=== PATIENT | male | born 1980 | race Caucasian/White ===

== ENCOUNTER 2018-10-19 12:59 | Outpatient (REF) | payer MEDICAID, SELFPAY ==
[2018-10-19 18:44] LABS: Abs Immature Grans 0.02 k/cumm (0.0-0.09); Absolute Basophil Count 0.05 k/cumm (0.0-0.2); Absolute Eosinophil Count 0.65 k/cumm (0.0-0.7); Absolute Lymphocyte Count 2.44 k/cumm (1.2-3.4); Absolute Monocyte Count 0.67 k/cumm (0.11-0.7); Absolute Neutrophil Count 5.06 k/cumm (1.2-6.7); Basophils % 0.6; Eosinophils % 7.3; HGB 14.9 g/dL (13.5-17.5); Immature Grans % 0.2; Lymphocytes % 27.4; Mean Corp. HGB Concentration 33.9 g/dL (32.0-36.0); Mean Corpuscular Volume 91.5 fL (80-95); Mean Platelet Volume 9.5 fL (8.0-11.0); Monocytes % 7.5; Platelet Count 298 x1000/uL (130-400); RBC 4.81 m/cumm (4.50-6.00); RBC Distribution Width 13.3 % (11.8-14.1); White Blood Cell Count 8.89 k/cumm (4.4-10.8)
[2018-10-19 20:05] LABS: ESR 8 MM/HR (0-15)
== END 2018-10-19 13:19 ==
LOC: NCHCN 12:59
PROVIDERS: PCP Family Medicine; Visit Provider Family Medicine
DX: K51.90 Ulcerative colitis, unspecified, without complications (principal)
CPT/HCPCS: 85652; 85025

== ENCOUNTER 2018-11-04 12:31 | Outpatient (REF) | payer MEDICAID, SELFPAY ==
[2018-11-05 08:19] LABS: HCT 43.4 % (40.0-50.0); HGB 14.5 g/dL (13.5-17.5); Mean Corp. HGB Concentration 33.4 g/dL (32.0-36.0); Mean Corpuscular Volume 92.7 fL (80-95); Mean Platelet Volume 9.8 fL (8.0-11.0); Platelet Count 337 x1000/uL (130-400); RBC 4.68 m/cumm (4.50-6.00); RBC Distribution Width 12.9 % (11.8-14.1); White Blood Cell Count 10.13 k/cumm (4.4-10.8)
== END 2018-11-04 12:51 ==
LOC: NCHCN 12:31
PROVIDERS: PCP Family Medicine; Visit Provider Family Medicine
DX: K51.90 Ulcerative colitis, unspecified, without complications (principal)
CPT/HCPCS: 85027

== ENCOUNTER 2019-03-10 10:47 | Outpatient (REF) | payer MEDICAID, SELFPAY ==
[2019-03-10 13:15] LABS: Abs Immature Grans 0.02 k/cumm (0.0-0.09); Absolute Basophil Count 0.04 k/cumm (0.0-0.2); Absolute Eosinophil Count 0.35 k/cumm (0.0-0.7); Absolute Lymphocyte Count 2.68 k/cumm (1.2-3.4); Absolute Neutrophil Count 6.41 k/cumm (1.2-6.7); Basophils % 0.4; Eosinophils % 3.4; HCT 43.1 % (40.0-50.0); HGB 14.8 g/dL (13.5-17.5); Immature Grans % 0.2; Mean Corp. HGB Concentration 34.3 g/dL (32.0-36.0); Mean Corpuscular Hemoglobin 30.5 pg (27.0-33.0); Mean Corpuscular Volume 88.9 fL (80-95); Mean Platelet Volume 9.2 fL (8.0-11.0); Monocytes % 7.8; Neutrophils % 62.2; Platelet Count 382 x1000/uL (130-400); RBC 4.85 m/cumm (4.50-6.00); RBC Distribution Width 12.8 % (11.8-14.1)
== END 2019-03-10 11:07 ==
LOC: NCHCN 10:47
PROVIDERS: PCP Family Medicine; Visit Provider Family Medicine
DX: K51.90 Ulcerative colitis, unspecified, without complications (principal)
CPT/HCPCS: 85025

== ENCOUNTER 2019-09-08 13:26 | Outpatient (REF) | payer MEDICAID, SELFPAY ==
[2019-09-10 22:29] LABS: Calprotectin 796 mcg/g
== END 2019-09-08 13:46 ==
LOC: LBN 13:26
PROVIDERS: PCP Family Medicine
DX: K51.30 Ulcerative (chronic) rectosigmoiditis without complications (principal)
CPT/HCPCS: 83993

== ENCOUNTER 2019-09-30 02:19 | Outpatient (CLI) | payer MEDICAID, SELFPAY ==
[2019-10-01 09:37] LABS: Hep B Core Antibody Negative (Negative)
[2019-10-01 11:10] LABS: HBs Antibody, Quant 7.7 mIU/mL (See Note); Hepatitis B Surface Ab Negative (See Note)
[2019-10-04 12:54] LABS: TB1 Ag minus Nil 0.45 IU/ml; TB2 Ag minus Nil 0.39 IU/mL
[2019-10-04 15:23] LABS: TB Interpretation Positive (Negative)
== END 2019-09-30 02:39 ==
PROVIDERS: PCP Family Medicine; Visit Provider Internal Medicine
DX: Z11.59 Encounter for screening for other viral diseases (principal); Z11.1 Encounter for screening for respiratory tuberculosis
CPT/HCPCS: 36415; 86704; 86706; 86480

== ENCOUNTER 2019-10-12 07:24 | Outpatient (CLI) | payer MEDICAID, SELFPAY ==
--- NOTE | 2019-10-12 | DI.RAD_ITS ---
EXAM: XR CHEST 2V PA LATERAL CLINICAL HISTORY: LATENT TUBERCULOSIS,Z22.7,POSITIVE SCREENING QUANTIFERON GOLD, SOME COUGH, TECHNIQUE: 2D digital imaging was performed. COMPARISON: CHEST 2 VIEWS PA,LAT from 08/19/2014 FINDINGS: MEDIASTINUM: Normal. HEART: Normal. PULMONARY VASCULATURE: Normal. LUNGS: Clear. PLEURAL SPACE: No pleural effusion or pneumothorax. BONE:Normal. OTHER FINDINGS:mild pectus excavatum IMPRESSION: No acute pulmonary findings. DATA REPOSITORY: RADIATION DOSE DELIVERED:
== END 2019-10-12 07:44 ==
PROVIDERS: PCP Family Medicine; Visit Provider Family Medicine
DX: R05 Cough (principal); Z22.7 Latent tuberculosis
CPT/HCPCS: 71046

== ENCOUNTER 2019-11-08 00:56 | Outpatient (CLI) | payer MEDICAID, SELFPAY ==
[2019-11-11 13:12] LABS: TB Interpretation Negative (Negative); TB1 Ag minus Nil 0.01 IU/ml
== END 2019-11-08 01:16 ==
PROVIDERS: PCP Family Medicine; Visit Provider Nurse Practitioner Gerontology
DX: R76.12 Nonspecific reaction to cell mediated immunity measurement of gamma interferon antigen response without active tuberculosis (principal)
CPT/HCPCS: 36415; 86704; 86706; 86480

== ENCOUNTER 2020-07-20 19:27 | Outpatient (REF) | payer MEDICAID, SELFPAY ==
[2020-07-22 11:37] LABS: COVID-19 RT-PCR UVMMC Result Negative (Negative)
== END 2020-07-20 19:47 ==
LOC: NCHCN 19:27
PROVIDERS: PCP Family Medicine; Visit Provider Nurse Practitioner Family
DX: Z20.822 Contact with and (suspected) exposure to COVID-19 (principal)
CPT/HCPCS: U0003

== ENCOUNTER 2020-09-07 19:21 | Outpatient (REF) | payer MEDICAID, SELFPAY ==
[2020-09-07 18:37] LABS: ALT 26 U/L (16-63); AST 17 U/L (15-37); Albumin 3.9 g/dL (3.4-5.0); Alkaline Phosphatase 44 U/L (46-116); Anion Gap 9.2 mmol/L (3-11); BUN 11 mg/dL (7-18); Bilirubin, Total 0.4 mg/dL (0.2-1.0); C-Reactive Protein 0.12 mg/dL (0.0-0.3); CO2 27.8 mmol/L (21.0-32.0); CREATININE 0.9 mg/dL (0.70-1.30); Calcium 9.4 mg/dL (8.5-10.1); Chloride 104 mmol/L (98-107); Glucose 116 mg/dL (74-106); Magnesium 2.2 mg/dL (1.8-2.4); Potassium 3.9 mmol/L (3.5-5.1); Sodium 141 mmol/L (136-145); TSH (W/Ref FT4) 0.21 uIU/mL (0.36-3.74); Total Protein 7.7 g/dL (6.4-8.2)
[2020-09-07 18:59] LABS: FREE T4 1.25 ng/dL (0.76-1.46)
== END 2020-09-07 19:22 | disposition home or self-care (01) ==
LOC: NCHCN 19:21
PROVIDERS: PCP Family Medicine; Visit Provider Family Medicine
DX: R00.2 Palpitations (principal); K51.90 Ulcerative colitis, unspecified, without complications
CPT/HCPCS: 80053; 83735; 84439; 84443; 85025; 86140

== ENCOUNTER 2020-09-08 14:45 | Outpatient (CLI) | payer MEDICAID, SELFPAY ==
--- NOTE | 2020-10-20 10:55 | W.CARDEVENT ---
Date of service: 10/20/20 Time of Service: 10:55 Cardiac Event Recorder Referring Provider:: Michele Indications:: Palpitations Cardiac Event Note: This is a 30-day event recorder order for indication of palpitations. ?The patient was in normal sinus rhythm for the majority of the recording with an average heart rate of 90 bpm. ?There were no critical or serious events. ?There were 17 patient triggered events associated with sinus rhythm, sinus tachycardia and occasional PVC. ?There are no episodes of atrial fibrillation, no pauses greater than 3 seconds and no evidence of high degree heart block.
== END 2020-09-08 14:46 | disposition home or self-care (01) ==
LOC: RT 14:47
PROVIDERS: PCP Family Medicine; Visit Provider Family Medicine
DX: R00.2 Palpitations (principal); R42 Dizziness and giddiness; R06.02 Shortness of breath
CPT/HCPCS: 93270

== ENCOUNTER 2020-09-08 18:48 | Outpatient (REF) | payer MEDICAID, SELFPAY ==
[2020-09-08 19:01] LABS: Abs Immature Grans 0.04 10^3/uL (0.0-0.06); Absolute Eosinophil Count 0.23 10^3/uL (0.0-0.7); Absolute Monocyte Count 0.69 10^3/uL (0.1-0.8); Absolute Neutrophil Count 9.27 10^3/uL (1.2-6.7); Basophils % 0.6; Eosinophils % 1.8; HCT 42.1 % (40.0-50.0); HGB 14.3 g/dL (13.5-17.5); Immature Grans % 0.3; Lymphocytes % 18.4; MCH 30.5 pg (27.0-33.0); MCV 89.8 fL (80-95); MPV 9.3 fL (8.0-11.0); Monocytes % 5.5; Neutrophils % 73.4; Nucleated RBC 0 %; Platelet Count 399 10^3/uL (130-400); RBC 4.69 10^6/uL (4.36-5.78); RDW 12.4 % (11.8-14.1); RDW-SD 40.9 fL; WBC 12.63 10^3/uL (4.4-10.8)
[2020-09-08 19:04] LABS: Absolute Basophil Count 0.08 10^3/uL (0.0-0.2); Absolute Lymphocyte Count 2.32 10^3/uL (1.2-3.4)
== END 2020-09-08 18:49 | disposition home or self-care (01) ==
LOC: NCHCN 18:48
PROVIDERS: PCP Family Medicine; Visit Provider Family Medicine
DX: K51.90 Ulcerative colitis, unspecified, without complications (principal); R00.2 Palpitations
CPT/HCPCS: 85025

== ENCOUNTER 2020-09-25 10:07 | Outpatient (CLI) | payer MEDICAID, SELFPAY ==
[2020-09-26 13:48] LABS: COVID-19 RT-PCR UVMMC Result Negative (Negative)
== END 2020-09-25 10:08 | disposition home or self-care (01) ==
PROVIDERS: PCP Family Medicine; Visit Provider Family Medicine
DX: Z20.822 Contact with and (suspected) exposure to COVID-19 (principal); R05 Cough
CPT/HCPCS: U0003

== ENCOUNTER → 2021-11-19 17:18 | Outpatient (CLI) | payer MEDICAID, SELFPAY ==
--- NOTE | 2021-11-19 17:32 | DI.RAD_ITS ---
Exam(s) XR CHEST 2V PA LATERAL EXAM: XR CHEST 2V PA LATERAL CLINICAL HISTORY: lUNG DISEASE, PAIN CHEST WALL.. TECHNIQUE: 2D digital imaging was performed. COMPARISON: CR XR CHEST 2V PA LATERAL from 10/12/2019 FINDINGS: 2 views: Heart size is normal. The mediastinum is not widened. Lungs are clear. No infiltrates nor pleural effusions. IMPRESSION: No acute pulmonary findings. DATA REPOSITORY: RADIATION DOSE DELIVERED:
--- NOTE | 2021-11-19 17:48 | DI.VRAD_ITS ---
PROCEDURE INFORMATION: Exam: XR Chest Exam date and time: 11/19/2021 5:25 PM Age: 41 years old Clinical indication: Chest wall pain; Patient HX: Lung disease, pain chest wall. TECHNIQUE: Imaging protocol: XR of the chest. Views: 2 views. COMPARISON: CR XR CHEST 2V PA LATERAL 10/12/2019 10:09 AM FINDINGS: Lungs: Unremarkable. No consolidation. Pleural spaces: Unremarkable. No pleural effusion. No pneumothorax. Heart/Mediastinum: Unremarkable. No cardiomegaly. Bones/joints: Pectus excavatum. IMPRESSION: No acute findings. Dictated and Authenticated by: Stewart Gordon MD. Ordering:ASCENCION Presley MD
== END ==
PROVIDERS: PCP Family Medicine; Visit Provider Family Medicine
DX: R07.89 Other chest pain (principal); R05.8 Other specified cough; J98.4 Other disorders of lung
CPT/HCPCS: 71046

== ENCOUNTER 2021-11-19 18:20 | Outpatient (REF) | payer MEDICAID, SELFPAY ==
[2021-11-21 11:49] LABS: COVID-19 RT-PCR UVMMC Result Negative (Negative)
== END 2021-11-19 18:21 | disposition home or self-care (01) ==
LOC: NCHCN 18:20
PROVIDERS: PCP Family Medicine; Visit Provider Family Medicine
DX: U07.1 COVID-19 (principal)
CPT/HCPCS: U0003

== ENCOUNTER 2022-01-16 18:19 | Outpatient (REF) | payer MEDICAID, SELFPAY ==
[2022-01-16 15:58] LABS: ALT 39 U/L (16-63); AST 28 U/L (15-37); Albumin 3.4 g/dL (3.4-5.0); Alkaline Phosphatase 63 U/L (46-116); Anion Gap 7.3 mmol/L (3-11); BUN 9 mg/dL (7-18); Bilirubin, Total 0.4 mg/dL (0.2-1.0); C-Reactive Protein 0.76 mg/dL (0.0-0.3); CO2 26.7 mmol/L (21.0-32.0); CREATININE 0.9 mg/dL (0.70-1.30); Calcium 8.8 mg/dL (8.5-10.1); Chloride 104 mmol/L (98-107); Glucose 85 mg/dL (74-106); Potassium 3.9 mmol/L (3.5-5.1); Sodium 138 mmol/L (136-145); Total Protein 7.6 g/dL (6.4-8.2)
[2022-01-16 16:01] LABS: Abs Immature Grans 0.07 10^3/uL (0.0-0.06); Absolute Basophil Count 0.09 10^3/uL (0.0-0.2); Absolute Eosinophil Count 1.15 10^3/uL (0.0-0.7); Absolute Lymphocyte Count 3.93 10^3/uL (1.2-3.4); Absolute Monocyte Count 0.94 10^3/uL (0.1-0.8); Absolute Neutrophil Count 4.89 10^3/uL (1.2-6.7); Basophils % 0.8; Eosinophils % 10.4; HCT 41.9 % (40.0-50.0); HGB 13.9 g/dL (13.5-17.5); Immature Grans % 0.6; Lymphocytes % 35.5; MCH 30.3 pg (27.0-33.0); MCHC 33.2 % (32.0-36.0); MCV 91 fL (80-95); Monocytes % 8.5; Neutrophils % 44.2; Platelet Count 399 10^3/uL (130-400); RBC 4.59 10^6/uL (4.36-5.78); RDW 12.8 % (11.8-14.1); WBC 11.07 10^3/uL (4.4-10.8)
== END 2022-01-16 18:20 | disposition home or self-care (01) ==
LOC: NCHCN 18:19
PROVIDERS: PCP Family Medicine; Visit Provider Family Medicine
DX: K51.90 Ulcerative colitis, unspecified, without complications (principal)
CPT/HCPCS: 80053; 85025; 86140

== ENCOUNTER 2022-06-11 04:00 | Outpatient (CLI) | payer MEDICAID, SELFPAY ==
[2022-06-11 16:25] LABS: Abs Immature Grans 0.02 10^3/uL (0.0-0.06); Absolute Basophil Count 0.07 10^3/uL (0.0-0.2); Absolute Eosinophil Count 0.43 10^3/uL (0.0-0.7); Absolute Lymphocyte Count 3.69 10^3/uL (1.2-3.4); Absolute Monocyte Count 0.72 10^3/uL (0.1-0.8); Absolute Neutrophil Count 6.79 10^3/uL (1.2-6.7); Basophils % 0.6; Eosinophils % 3.7; HCT 40.3 % (40.0-50.0); HGB 13.9 g/dL (13.5-17.5); Immature Grans % 0.2; Lymphocytes % 31.5; MCH 30.5 pg (27.0-33.0); MCHC 34.5 % (32.0-36.0); MCV 89 fL (80-95); MPV 9.1 fL (8.0-11.0); Monocytes % 6.1; Neutrophils % 57.9; Platelet Count 302 10^3/uL (130-400); RBC 4.55 10^6/uL (4.36-5.78); RDW 12.1 % (11.8-14.1); RDW-SD 39.4 fL; WBC 11.73 10^3/uL (4.4-10.8)
[2022-06-11 17:18] LABS: C-Reactive Protein < 0.05 mg/dL (0.0-0.3)
[2022-06-13 11:34] LABS: TB Interpretation Negative (Negative); TB1 Ag minus Nil 0.02 IU/ml; TB2 Ag minus Nil 0.01 IU/mL
[2022-06-15 16:07] LABS: Calprotectin 93.1 mcg/g
== END 2022-06-11 04:01 | disposition home or self-care (01) ==
LOC: LBO 04:00
PROVIDERS: PCP Family Medicine; Visit Provider Family Medicine
DX: K51.90 Ulcerative colitis, unspecified, without complications (principal); R76.11 Nonspecific reaction to tuberculin skin test without active tuberculosis
CPT/HCPCS: 36415; 83993; 85025; 86140; 86480

== ENCOUNTER 2023-02-04 10:07 | Outpatient (REF) | payer MEDICAID, SELFPAY ==
[2023-02-04 15:23] LABS: Abs Immature Grans 0.05 10^3/uL (0.0-0.06); Absolute Eosinophil Count 1.37 10^3/uL (0.0-0.7); Absolute Lymphocyte Count 3.66 10^3/uL (1.2-3.4); Absolute Monocyte Count 0.94 10^3/uL (0.1-0.8); Basophils % 0.8; Eosinophils % 11.1; HCT 42.9 % (40.0-50.0); HGB 14.3 g/dL (13.5-17.5); Immature Grans % 0.4; Lymphocytes % 29.7; MCH 30.3 pg (27.0-33.0); MCHC 33.3 % (32.0-36.0); MCV 91 fL (80-95); MPV 9.2 fL (8.0-11.0); Monocytes % 7.6; Neutrophils % 50.4; Platelet Count 401 10^3/uL (130-400); RBC 4.72 10^6/uL (4.36-5.78); RDW 13.1 % (11.8-14.1); RDW-SD 43.3 fL; WBC 12.31 10^3/uL (4.4-10.8)
[2023-02-04 16:29] LABS: ALT 38 U/L (16-63); AST 30 U/L (15-37); Albumin 3.4 g/dL (3.4-5.0); Alkaline Phosphatase 64 U/L (46-116); Anion Gap 8.4 mmol/L (3-11); BUN 9 mg/dL (7-18); Bilirubin, Total 0.3 mg/dL (0.2-1.0); C-Reactive Protein 0.71 mg/dL (0.0-0.3); CO2 27.6 mmol/L (21.0-32.0); CREATININE 0.9 mg/dL (0.70-1.30); Calcium 8.9 mg/dL (8.5-10.1); Chloride 106 mmol/L (98-107); Estimated GFR 109.36 (mL/min/1.73m2); Glucose 99 mg/dL (74-106); Potassium 4.1 mmol/L (3.5-5.1); Sodium 142 mmol/L (136-145); Total Protein 7.6 g/dL (6.4-8.2)
== END 2023-02-04 10:08 | disposition home or self-care (01) ==
LOC: NCHCN 10:07
PROVIDERS: PCP Family Medicine; Visit Provider Family Medicine
DX: K51.90 Ulcerative colitis, unspecified, without complications (principal); L29.9 Pruritus, unspecified
CPT/HCPCS: 80053; 85025; 86140

== ENCOUNTER 2023-07-14 10:35 | Emergency (ER) | payer MEDICAID, SELFPAY ==
[2023-07-14 10:48] VITALS: BP 126/77; PULSE 127; RESP 20; TEMP 37.2; O2SAT 97
--- NOTE | 2023-07-14 11:11 | W.ED.GENAD ---
HPI General Stated Complaint: GenMedical Mode of arrival: ambulatory. KANDICE: 3 Date/Time Provider Initiated Documentation: 07/14/23 10:52. Limitations to Documentation: no limitations. Information obtained by: patient, RN notes reviewed and old records reviewed. HPI Narrative: 43-year-old male presents to the ER with a chief complaint of noticing lumps to his right groin that are tender, general malaise nausea vomiting dysuria for the last 3 days he does have a history of ulcerative colitis. Has had increased blood in stool recently. He denies any concern for STD, penile discharge or lesions. He did have a hernia repair as a baby. No other abdominal surgeries. He does take colitis immunosuppressive medications which he took this morning. He presents slightly tachycardic pulse rate 127. He is also complaining of some sore throat body aches. Denies any chest pain shortness of breath. He does endorse some back pain. Related Data Home Medications Medication Instructions Recorded Confirmed albuterol sulfate 0.63 mg/3 mL 0.63 mg inhalation QID PRN 07/10/07/14/23 solution for nebulization budesonide 3 mg mg PO 07/14/23 capsule,delayed,extended release metronidazole 500 mg tablet 500 mg PO BID Colitis 10 days #20 07/14/23 tabs prednisone 20 mg tablet 60 mg (3 x 20 mg) PO DAILY Colitis 07/14/23 Flare 9 days #17 tabs Previous Rx's Medication Instructions Recorded metronidazole 500 mg tablet 500 mg PO BID Colitis 10 days #20 07/14/23 tabs prednisone 20 mg tablet 60 mg (3 x 20 mg) PO DAILY Colitis 07/14/23 Flare 9 days #17 tabs Allergies Allergy/AdvReac Type Severity Reaction Status Date / Time Sulfa (Sulfonamide AdvReac Intermediate Unverified 07/14/23 16:02 Antibiotics) amoxicillin AdvReac Mild Pt states Unverified 07/14/23 16:02 ineffective Review of Systems All systems reviewed & are unremarkable except as noted in HPI and below Constitutional Constitutional: Reports as per HPI, Reports body ache(s), Reports headache(s), Reports lethargy, Reports malaise and Reports poor appetite ENT Ears, Nose, Mouth, and Throat: Reports headache(s) and Reports sore throat Cardiovascular Cardiovascular: Denies chest pain and Denies dyspnea Respiratory Respiratory: Denies cough and Denies dyspnea Gastrointestinal Gastrointestinal: Reports abdominal pain, Reports diarrhea, Reports nausea and Reports vomiting Genitourinary Genitourinary: Denies genital lesions, Reports genital pain, Reports dysuria, Reports flank pain and Reports other (Dysuria) Neurologic Neurologic: Reports headache(s) PFSH All Active Problems Singh granules (Acute) Torus mandibularis (Acute) Surgical History Colonoscopy - MAC (07/12/16) Social History Smoking/Tobacco Use Status: Current every day Smoking risk assessment performed?: Yes Drug use: Never Details: patient declines to answer questions about ETOH and Rec Substances Exam Narrative Exam Narrative: Constitutional: Alert and oriented x3. Appears stated age. Normal body habitus. Patient appears agitated and anxious upon initial presentation. Head: Normocephalic, no trauma. Eyes: Pupils PERRL, Red reflex noted, EOM's intact. Eyelids symmetrical without lesions, discharge, or swelling. ENT: Bilateral TM's WNL, External ear normal to inspection, no mastoid TTP, swelling, or erythema, Nasal turbinates WNL, no nasal discharge. Normal dentition, Posterior pharynx WNL, no exudate. Chest: Sinus tachycardia initially, normal S1, S2, distal pulses intact. Resp: Lungs clear to auscultation bilaterally, no wheezes, rales, or rhonchi. Abdomen: Soft, non-distended, tenderness with palpation right lower quadrant, he does have some palpable swelling noted to his right inner thigh that is tender no surrounding erythema induration or redness. Musculoskeletal: Normal gait, 5/5 strength to all four extremities. Skin: No suspicious rashes or lesions. Capillary refill less than 2 sec. Neurologic: Cranial nerves II-XII intact. Alert and oriented x 3. Motor: No deficits noted. Sensory: Intact bilaterally all 4 extremities. Hematologic/Lymphatic: No ecchymosis, no lymphadenopathy. Course Vital Signs Vital signs: Vital Signs Temperature 37.2 C 07/14/23 10:48 Pulse 127 H 07/14/23 10:48 Respiratory Rate 20 07/14/23 10:48 Blood Pressure 126/77 07/14/23 10:48 Pulse Oximetry 97 07/14/23 10:48 Temperature 37.2 C 07/14/23 10:48 Temperature Source Tympanic 07/14/23 10:48 Pulse 127 H 07/14/23 10:48 Respiratory Rate 20 07/14/23 10:48 Blood Pressure 126/77 07/14/23 10:48 Pulse Oximetry 97 07/14/23 10:48 Oxygen Delivery Method Room Air 07/14/23 10:48 Oxygen Flow Rate 0 07/14/23 10:48 Medical Decision Making 43-year-old male presents to the ER with a chief complaint of noticing lumps to his right groin that are tender, general malaise nausea vomiting dysuria for the last 3 days he does have a history of ulcerative colitis. Has had increased blood in stool recently. He denies any concern for STD, penile discharge or lesions. He did have a hernia repair as a baby. No other abdominal surgeries. He does take colitis immunosuppressive medications which he took this morning. He presents slightly tachycardic pulse rate 127. He is also complaining of some sore throat body aches. Denies any chest pain shortness of breath. He does endorse some back pain. Workup ordered including CBC CMP lipase urinalysis UDS and GC chlamydia. However patient reports that he is not sexually active. He does have dysuria and lymphadenopathy. Patient continues to become agitated and anxious. He is requesting more information on why we are doing the CT. All his questions were answered to the best my ability. I did offer him some analgesics such as Toradol or something for pain which patient declined at this time. I did go over his labs at this time. Fluvid swab and strep swab ordered. CBC shows mild leukocytosis with a white blood cell count of 14.1, absolute neutrophils 11.47, CMP within normal limits. Lipase is 15 which is low. He does have 40 ketones trace blood in his urine. Culture is not indicated at this time. UDS is positive for THC, no evidence of leukocytes or white blood cells to indicate UTI. He does have a tender lump noted to his right inner thigh. He denies any injuries or testicular swelling. He also does have associated right lower quadrant abdominal pain with palpation. No masses palpated Differential diagnosis includes but not limited to inguinal hernia, appendicitis, kidney stone, groin lymphadenopathy, hematoma, muscle strain, UTI however patient does not have any indications of that clinically. Patient does agree to have CT imaging done at this time after further discussion. Patient refusing medication reconciliation with ED staff, he is also refusing re-check of temperature at this time and refusing to speak with staffing consultant. 1531: Discussed results with patient and family they verbalize understanding. Patient does not want to be admitted at this time. He is willing to follow-up with his primary care provider within the next 2 to 3 days. I will prescribe him antibiotics and prednisone for possible colitis flare. This text was generated using [employer] dictation system, please disregard any oddities of phrase or misspellings. Patient refused to take the prednisone that was given to him here by staffing consultant due to her touching the medication. Patient nurse did offer it to him while still in the package. Medication return to the xis by ED staff. Lab Data Lab results reviewed: Yes I reviewed the patient's lab results. Labs: Laboratory Tests Range/Units 07/14/23 07/14/23 11:35 11:38 WBC (4.4-10.8) 10^3/uL 14.19 H RBC (4.36-5.78) 10^6/uL 4.95 Hgb (13.5-17.5) g/dL 15.0 Hct (40.0-50.0) % 44.0 MCV (80-95) fL 89 MCH (27.0-33.0) pg 30.3 MCHC (32.0-36.0) % 34.1 RDW (11.8-14.1) % 12.2 Plt Count (130-400) 10^3/uL 291 MPV (8.0-11.0) fL 9.2 Immature Gran % 0.2 Neutrophils % 80.8 Lymphocytes % 10.0 Monocytes % 7.0 Eosinophils % 1.6 Basophils % 0.4 Nucleated RBC % (0.0-0.3) % 0.0 Absolute Neutrophils (1.2-6.7) 10^3/uL 11.47 H Absolute Lymphocytes (1.2-3.4) 10^3/uL 1.42 Absolute Monocytes (0.1-0.8) 10^3/uL 0.99 H Absolute Eosinophils (0.0-0.7) 10^3/uL 0.23 Absolute Basophils (0.0-0.2) 10^3/uL 0.06 Sodium (136-145) mmol/L 140 Potassium (3.5-5.1) mmol/L 3.9 Chloride (98-107) mmol/L 103 Carbon Dioxide (21.0-32.0) mmol/L 28.4 Anion Gap (3-11) mmol/L 8.6 BUN (7-18) mg/dL 14 Creatinine (0.70-1.30) mg/dL 0.8 Est GFR (CKD-EPI 2020) (mL/min/1.73m2) 113.32 Glucose (74-106) mg/dL 106 Calcium (8.5-10.1) mg/dL 9.1 Magnesium (1.8-2.4) mg/dL 1.9 Total Bilirubin (0.2-1.0) mg/dL 0.6 AST (15-37) U/L 35 ALT (16-63) U/L 55 Alkaline Phosphatase (46-116) U/L 59 Total Protein (6.4-8.2) g/dL 8.1 Albumin (3.4-5.0) g/dL 3.8 Lipase (16-77) U/L 15 L Urine Color (Yellow) Yellow Urine Clarity (Clear) Clear Urine pH (5-8) 6.0 Ur Specific [place] (1.005-1.025) 1.025 Urine Protein (Negative) mg/dL Negative Urine Ketones (Negative) mg/dL 40 H Urine Blood (Negative) Trace-intact H Urine Nitrite (Negative) Negative Urine Bilirubin (Negative) Negative Urine Urobilinogen (Up to 0.2) mg/dL 0.2 Ur Leukocyte Esterase (Negative) Negative Urine RBC (0-2) HPF 0-2 Urine WBC (0-5) HPF Negative Ur Epithelial Cells (Negative) HPF Rare Urine Crystals (Negative) HPF Negative Urine Bacteria (Negative) HPF Negative Urine Casts (Negative) LPF Negative Urine Mucus (Negative) Trace Ur Culture Indicated? No Urine Glucose (Negative) mg/dL Negative Urine Opiates Screen (Negative) Negative Urine Methadone Screen (Negative) Negative Ur Barbiturates Screen (Negative) Negative Ur Tricyclics Screen (Negative) Negative Ur Amphetamines Screen (Negative) Negative U Benzodiazepines Scrn (Negative) Negative Urine Cocaine Screen (Negative) Negative Ur THC Screen (Negative) Positive A Discharge Plan Disposition Patient Disposition: Home Discharge Details Primary Care Provider: Fernandez Cortez ED Provider: Keesha Gutierrez Home Meds and New Rx's Prescriptions: New metronidazole 500 mg tablet 500 mg PO BID 10 Days Qty: 20 0RF Rx Instructions: Take 1 tablet by mouth twice daily for the next 10 days. prednisone 20 mg tablet 60 mg PO DAILY 9 Days Qty: 17 0RF Rx Instructions: Take 3 tabs daily x 3 days, Take 2 tabs daily x 3 days, Take one tab daily x 3 days. No Action albuterol sulfate 0.63 MG/3 ML solution for nebulization 0.63 mg Inhalation QID PRN budesonide 3 mg capsule,delayed,extend.release PO Patient Comments: TAKE ONE CAPSULE BY MOUTH EVERY DAY Discharge Instructions Instructions: Lymphadenopathy (ED), Acute Nausea and Vomiting (ED) Additional Instructions: Please take the antibiotics and prednisone as directed. Clear liquid diet for the next few days advance as tolerated. Please take Tylenol or Ibuprofen with food every 4-6 hours as needed for pain and swelling. CT shows some enlarged lymph nodes noted in your right groin. COVID flu and RSV are negative, there is no evidence of urinary tract infection. You have some blood in your urine and slightly elevated white blood cell count. This could be a colitis flare. Follow up with primary care provider in 3-5 days. Return to ED sooner if any worsening or concerns. Increase oral fluids. You were placed on care management list to assist you in getting a sooner appointment. Referrals: Fernandez Cortez [Primary Care Provider] - 3 days Discharge Data Discharge Date/Time-TO BE ENTERED AT DEPARTURE: 07/14/23 16:10
[2023-07-14] MEDS: Normal Saline 1,000 ML 1000 ML IV (11:44)
[2023-07-14 11:51] LABS: Abs Immature Grans 0.03 10^3/uL (0.0-0.06); Absolute Basophil Count 0.06 10^3/uL (0.0-0.2); Absolute Lymphocyte Count 1.42 10^3/uL (1.2-3.4); Basophils % 0.4; Eosinophils % 1.6; Immature Grans % 0.2; MCH 30.3 pg (27.0-33.0); MCHC 34.1 % (32.0-36.0); MCV 89 fL (80-95); MPV 9.2 fL (8.0-11.0); Neutrophils % 80.8; Platelet Count 291 10^3/uL (130-400); RBC 4.95 10^6/uL (4.36-5.78); RDW 12.2 % (11.8-14.1); WBC 14.19 10^3/uL (4.4-10.8)
[2023-07-14 11:53] LABS: Bilirubin Negative (Negative); Blood Trace-intact (Negative); Clarity Clear (Clear); Glucose Negative (Negative); Ketones 40 mg/dL (Negative); Leukocyte Esterase Negative (Negative); Nitrite Negative (Negative); Specific Gravity 1.025 (1.005-1.025); Urobilinogen 0.2 mg/dL (Up to 0.2)
[2023-07-14 12:05] LABS: Epithelial Cells Rare HPF (Negative); RBC 0-2 HPF (0-2); WBC Negative HPF (0-5)
[2023-07-14 12:06] LABS: Bacteria Negative HPF (Negative); C & S Indicated? No; Casts Negative LPF (Negative); Crystals Negative HPF (Negative); Mucus Trace (Negative)
[2023-07-14 12:10] LABS: ALT 55 U/L (16-63); AST 35 U/L (15-37); Albumin 3.8 g/dL (3.4-5.0); Alkaline Phosphatase 59 U/L (46-116); Anion Gap 8.6 mmol/L (3-11); BUN 14 mg/dL (7-18); Bilirubin, Total 0.6 mg/dL (0.2-1.0); CO2 28.4 mmol/L (21.0-32.0); CREATININE 0.8 mg/dL (0.70-1.30); Calcium 9.1 mg/dL (8.5-10.1); Chloride 103 mmol/L (98-107); Estimated GFR 113.32 (mL/min/1.73m2); Glucose 106 mg/dL (74-106); Lipase 15 U/L (16-77); Magnesium 1.9 mg/dL (1.8-2.4); Potassium 3.9 mmol/L (3.5-5.1); Sodium 140 mmol/L (136-145); Total Protein 8.1 g/dL (6.4-8.2)
[2023-07-14 12:11] LABS: *AMPHETAMINES SCREEN URINE Negative (Negative); *BARBITURATES SCREEN URINE Negative (Negative); *BENZODIAZEPINES SCREEN URINE Negative (Negative); Cannabinoids THC Positive (Negative); Cocaine Screen,Urine Negative (Negative); METHADONE URINE SCREEN Negative (Negative); OPIATES URINE SCREEN Negative (Negative)
[2023-07-14 12:12] LABS: Tricyclic Antidepressants Negative (Negative)
[2023-07-14 12:22] LABS: Absolute Eosinophil Count 0.23 10^3/uL (0.0-0.7); Absolute Monocyte Count 0.99 10^3/uL (0.1-0.8); Absolute Neutrophil Count 11.47 10^3/uL (1.2-6.7)
--- NOTE | 2023-07-14 12:45 | DI.CT_ITS ---
Exam(s) CT ABDOMEN PELVIS W EXAM: CT ABDOMEN PELVIS W CLINICAL HISTORY: RLQ abd pain. TECHNIQUE: Imaging Protocol: Axial computed tomography images with coronal and sagittal reformatted images were created and reviewed CONTRAST MATERIAL: Intravenous: Omnipaque 350 Contrast volume:100 ml Oral: / no COMPARISON: No exams were available for comparison FINDINGS: ABDOMEN and PELVIS: Lung Bases: No acute findings. Liver: Normal density. No measurable mass. Gallbladder and biliary tract: No radiodense calculus or dilation. Pancreas: Normal density. No abnormal calcifications or inflammatory process. No evidence of mass. Spleen: Normal. Kidneys: Normal size, contour and axis. No radiodense stones. No obstructive uropathy. No suspicious masses seen. Adrenal glands: No masses seen. Vasculature: Abdominal aorta non-dilated. Soft tissues: Abnormally enlarged right inguinal lymph nodes, the largest measuring 2.3 cm. Bladder: No gross wall thickening. No calculi.No focal mass. Bowel: Moderate quantity of stool in ascending and transverse colon. Little stool distally. Rectosi gmoid is collapsed.. Destined tablets in colon. No obstruction. No bowel wall thickening. Appendi x normal. Peritoneal cavity: No ascites. No focal collection or mesenteric inflammatory response. Bones: Degenerative disc changes at L5-S1 with prominent endplate osteophytes causing bilateral neura l foraminal narrowing. Reproductive organs: Within normal limits. Lymph nodes: Enlarged abnormally enlarged right inguinal lymph nodes. Also enlarged distal right nakul ac chain lymph node 2.1 cm which appears inflamed. Small mesenteric lymph nodes. Small para-aortic lymph nodes. IMPRESSION:: Abnormally enlarged right inguinal lymph nodes as well as right iliac chain lymph nodes . RADIATION DOSE DELIVERED: Total DLP DATA REPOSITORY: All CT scans at this facility are submitted to the National Radiology Data Registry (NRDR) Dose Index Registry (DIR) with the [employer] (ACR). RADIATION OPTIMIZATION: All CT scans at this facility use at least one of these dose optimization te chniques: automated exposure control; mA and/or kV adjustment per patient size (includes targeted exa ms where dose is matched to clinical indication); or iterative reconstruction.
[2023-07-14] MEDS: Omnipaque 350 MG/ML 100 ML BTL IJ (13:37)
[2023-07-14] MEDS: Normal Saline - Diluent 50 ML VIAL IJ (13:38)
--- NOTE | 2023-07-14 14:47 | DI.VRAD_ITS ---
Addendum created by Too Robison MD on 07/14/2023 3:10:20 PM EST: Please change in the body report under lymph nodes from no enlarged lymph nodes 2 there is an enlarged lymph node at the level of the right femoral artery which appears inflamed. There are additional enlarged right inguinal lymph nodes. Clinical correlation is recommended. And then please put in the impression enlarged lymph nodes as above. Initial report created on 07/14/2023 2:46:44 PM EST: PROCEDURE INFORMATION: Exam: CT Abdomen And Pelvis With Contrast Exam date and time: 07/14/2023 1:37 PM Age: 43 years old Clinical indication: Other: Rlq abd pain; Patient HX: Rlq pain TECHNIQUE: Imaging protocol: Computed tomography of the abdomen and pelvis with contrast. Contrast material: OMNIPAQUE 350; Contrast volume: 100 ml; Contrast route: INTRAVENOUS (IV); COMPARISON: CR XR CHEST 2V PA LATERAL 11/19/2021 5:25 PM FINDINGS: Lungs: There is a nodule within the left lower lobe measuring 5 mm. Please see axial series 4, image 1. Heart: The visualized portions of the heart and pericardium are unremarkable. Liver: The liver is within normal limits. Gallbladder and bile ducts: The gallbladder is unremarkable. Pancreas: The pancreas is unremarkable. Spleen: The spleen is within normal limits. Adrenal glands: The adrenal glands are within normal limits. Kidneys and ureters: The kidneys are within normal limits. Stomach and bowel: There are 2 rectangular shaped dense bodies within the cecum. There are additional 2 rectangular shaped densities within the transverse colon. These measure each about 2 cm in size. These could represent pills. Clinical correlation is recommended. The distal descending and sigmoid colons are collapsed. The rectum is collapsed. Appendix: No evidence of appendicitis. Intraperitoneal space: Unremarkable. No free air. No significant fluid collection. Vasculature: Unremarkable. No abdominal aortic aneurysm. Lymph nodes: No enlarged lymph nodes. Urinary bladder: The urinary bladder is unremarkable. Reproductive: The prostate and seminal vesicles are within normal limits. Bones/joints: There are degenerative changes of the lumbar spine. There is degenerative disc disease at L5-S1. There is a disc osteophyte complex at this level. Soft tissues: Unremarkable. IMPRESSION: 1. Pulmonary nodule as above.For patients at low risk (minimal or absent history of smoking and of other known risk factors), no routine follow-up is indicated. For patients at high risk (history of smoking or of other known risk factors), consider optional CT Chest at 12 months. (Reference: Marco A). 2. Densities within the colon as described above. Please see discussion above. 3. Osseous findings as above. REFERENCES: Marco A Royal, et al. Guidelines for Management of Incidental Pulmonary Nodules Detected on CT Images: From the Fleischner Society 2017. Radiology. 2017;284(1):228-243. Dictated and Authenticated by: Too Robison MD. Ordering:CAMILLE Thao MD
[2023-07-14 14:59] VITALS: BP 139/83; PULSE 104; RESP 18; O2SAT 98
--- NOTE | 2023-07-14 15:08 | NUR.NOTE ---
Nursing Note: this RN attempted to do med rec with pt and obtain Temp. Patient refused tempature and declined to speak about medication. patient stated I'm just cold this RN offered to give a warm blanket. PT declined blanket
[2023-07-14 15:13] LABS: COVID-19 PCR Negative (Negative); Influenza A PCR Negative (Negative); Influenza B PCR Negative (Negative); RSV PCR Negative (Negative)
[2023-07-14 15:15] LABS: Source Nasopharynx
--- NOTE | 2023-07-14 15:51 | NUR.NOTE ---
Referral faxed to PCP for colitis flare and lymphadenopathy in 3 days. Nursing Note:
== END 2023-07-14 16:10 | disposition home or self-care (01) ==
PROVIDERS: Emergency Provider Registered Nurse Emergency; PCP Family Medicine
DX: R30.0 Dysuria (principal); R11.2 Nausea with vomiting, unspecified; R59.1 Generalized enlarged lymph nodes; F17.210 Nicotine dependence, cigarettes, uncomplicated
CPT/HCPCS: 80053; 80307; 83690; 87491; 87591; 87637; 96360; 99285; 74177; 81003; 81015; 83735; 85025; 87081; 99284; J3490

== ENCOUNTER 2023-08-11 18:36 | Outpatient (REF) | payer MEDICAID, SELFPAY ==
[2023-08-11 16:02] LABS: Abs Immature Grans 0.08 10^3/uL (0.0-0.06); HCT 42.8 % (40.0-50.0); HGB 14.7 g/dL (13.5-17.5); MCH 30.6 pg (27.0-33.0); MCHC 34.3 % (32.0-36.0); MCV 89 fL (80-95); MPV 9.2 fL (8.0-11.0); Platelet Count 397 10^3/uL (130-400); RBC 4.81 10^6/uL (4.36-5.78); RDW 12.5 % (11.8-14.1); RDW-SD 41.1 fL; WBC 11.14 10^3/uL (4.4-10.8)
[2023-08-11 16:23] LABS: ALT 33 U/L (16-63); AST 16 U/L (15-37); Albumin 3.4 g/dL (3.4-5.0); Alkaline Phosphatase 66 U/L (46-116); Anion Gap 12.9 mmol/L (3-11); BUN 8 mg/dL (7-18); Bilirubin, Total 0.5 mg/dL (0.2-1.0); C-Reactive Protein 2.53 mg/dL (0.0-0.3); CO2 26.1 mmol/L (21.0-32.0); CREATININE 0.7 mg/dL (0.70-1.30); Calcium 9.4 mg/dL (8.5-10.1); Chloride 104 mmol/L (98-107); Estimated GFR 117.98 (mL/min/1.73m2); Glucose 102 mg/dL (74-106); Potassium 3.9 mmol/L (3.5-5.1); Sodium 143 mmol/L (136-145); Total Protein 7.6 g/dL (6.4-8.2)
[2023-08-11 16:31] LABS: Absolute Basophil Count 0.11 10^3/uL (0.0-0.2); Absolute Eosinophil Count 0.22 10^3/uL (0.0-0.7); Absolute Lymphocyte Count 2.01 10^3/uL (1.2-3.4); Absolute Monocyte Count 1.45 10^3/uL (0.1-0.8); Absolute Neutrophil Count 7.35 10^3/uL (1.2-6.7); Atypical Lymphocytes % 2
[2023-08-11 16:32] LABS: Diff Comment Diff Reviewed; RBC Morphology Normal
[2023-08-12 00:33] LABS: HIV-1/2 Ag & Ab Screen Negative (Negative)
[2023-08-12 10:52] LABS: Syphilis Serology (RPR) Negative (Negative)
== END 2023-08-11 18:37 | disposition home or self-care (01) ==
LOC: NCHCN 18:36
PROVIDERS: PCP Family Medicine; Visit Provider Family Medicine
DX: K51.90 Ulcerative colitis, unspecified, without complications (principal); L04.3 Acute lymphadenitis of lower limb; R79.82 Elevated C-reactive protein (CRP); Z11.3 Encounter for screening for infections with a predominantly sexual mode of transmission; Z11.4 Encounter for screening for human immunodeficiency virus [HIV]
CPT/HCPCS: 80053; 87389; 85025; 86140; 86592

== ENCOUNTER 2023-08-25 18:16 | Outpatient (REF) | payer MEDICAID, SELFPAY ==
[2023-08-25 20:11] LABS: Absolute Lymphocyte Count 2.87 10^3/uL (1.2-3.4); Absolute Monocyte Count 1.17 10^3/uL (0.1-0.8); Absolute Neutrophil Count 6.74 10^3/uL (1.2-6.7); Basophils % 0.8; Eosinophils % 9.9; HCT 39.6 % (40.0-50.0); HGB 13.1 g/dL (13.5-17.5); Immature Grans % 0.8; Lymphocytes % 23.6; MCH 30.3 pg (27.0-33.0); MCHC 33.1 % (32.0-36.0); MCV 92 fL (80-95); MPV 8.9 fL (8.0-11.0); Monocytes % 9.6; Neutrophils % 55.3; Platelet Count 517 10^3/uL (130-400); RBC 4.32 10^6/uL (4.36-5.78); RDW 12.9 % (11.8-14.1); RDW-SD 42.7 fL; WBC 12.18 10^3/uL (4.4-10.8)
[2023-08-25 20:19] LABS: Absolute Eosinophil Count 1.21 10^3/uL (0.0-0.7)
[2023-08-25 20:20] LABS: C-Reactive Protein 2.81 mg/dL (<or=0.5)
[2023-08-27 10:43] LABS: Lyme Ab w Rflx to Lyme Confirm Negative (Negative)
== END 2023-08-25 18:17 | disposition home or self-care (01) ==
LOC: NCHCN 18:16
PROVIDERS: PCP Family Medicine; Visit Provider Family Medicine
DX: K51.90 Ulcerative colitis, unspecified, without complications (principal); M25.59 Pain in other specified joint; R79.82 Elevated C-reactive protein (CRP)
CPT/HCPCS: 85025; 86140; 86618

== ENCOUNTER 2023-09-08 10:41 | Outpatient (REF) | payer MEDICAID, SELFPAY ==
[2023-09-08 11:44] LABS: C Diff PCR Positive (Negative)
== END 2023-09-08 10:42 | disposition home or self-care (01) ==
LOC: NCHCN 10:41
PROVIDERS: PCP Family Medicine; Visit Provider Family Medicine
DX: R19.7 Diarrhea, unspecified (principal)
CPT/HCPCS: 87493

== ENCOUNTER 2023-09-10 15:05 | Outpatient (REF) | payer MEDICAID, SELFPAY ==
[2023-09-10 17:03] LABS: C Diff PCR Positive (Negative)
[2023-09-13 17:30] LABS: Calprotectin 974 mcg/g
== END 2023-09-10 15:06 | disposition home or self-care (01) ==
LOC: LBN 15:05
PROVIDERS: PCP Family Medicine; Visit Provider Internal Medicine Gastroenterology
DX: A04.72 Enterocolitis due to Clostridium difficile, not specified as recurrent (principal); K51.00 Ulcerative (chronic) pancolitis without complications
CPT/HCPCS: 87493; 83993

== ENCOUNTER 2023-10-11 01:24 | Emergency (ER) | payer MEDICAID, SELFPAY ==
[2023-10-11 01:27] VITALS: BP 150/106; PULSE 88; RESP 20; TEMP 36.3; O2SAT 99
[2023-10-11 01:38] VITALS: BP 150/106; PULSE 88; RESP 20; TEMP 36.3; O2SAT 99
--- NOTE | 2023-10-11 01:45 | DI.CT_ITS ---
Exam(s) CT THORAX CTA EXAM: CT THORAX CTA CLINICAL HISTORY: abdominal pain radiating into back flanks. TECHNIQUE: Imaging Protocol: Axial CT angiography was performed with multi-slice acquisition and mu lti-planar and/or 3D reconstructions. CONTRAST MATERIAL: Intravenous: Omnipaque 350 contrast volume:100 mL COMPARISON: CT CT ABDOMEN PELVIS W from 07/14/[address] ABDOMEN PELVIS W from 10/11/2023 FINDINGS: The examination is limited due to patient motion artifact. Tracheobronchial tree: Patent where visualized. Pulmonary parenchyma: No consolidation or dominant measurable mass. No architectural distortion. Pulmonary Arteries: No evidence of filling defect to suggest pulmonary emboli. Mediastinum and Deya: No dominant adenopathy or fluid collection. The esophagus is unremarkable. Visualized thyroid gland: Unremarkable. Pleura: No effusion or pneumothorax. Heart: The heart is not dilated. No coronary artery calcifications are seen. No pericardial effusion. Aorta: Thoracic aorta non-dilated. No evidence of dissection. Soft tissues: Unremarkable. Bones: Within normal limits for the patient's age. IMPRESSION: No evidence of pulmonary embolism, thoracic aortic dissection or aneurysm. RADIATION DOSE DELIVERED: Total DLP DATA REPOSITORY: All CT scans at this facility are submitted to the National Radiology Data Registry (NRDR) Dose Index Registry (DIR) with the [employer] (ACR). RADIATION OPTIMIZATION: All CT scans at this facility use at least one of these dose optimization te chniques: automated exposure control; mA and/or kV adjustment per patient size (includes targeted exa ms where dose is matched to clinical indication); or iterative reconstruction.
--- NOTE | 2023-10-11 01:45 | DI.CT_ITS ---
Exam(s) CT ABDOMEN PELVIS W EXAM: CT ABDOMEN PELVIS W CLINICAL HISTORY: abdominal pain radiating into back flanks TECHNIQUE: Imaging Protocol: Axial computed tomography images with coronal and sagittal reformatted images were created and reviewed. CONTRAST MATERIAL: Intravenous: Omnipaque 350 Contrast volume:100 mL Oral: No COMPARISON: CT CT ABDOMEN PELVIS W from 07/14/2023 FINDINGS: ABDOMEN: Lung Bases: Normal where visualized. Liver: Normal density. No measurable mass. Portal, Superior Mesenteric, and Splenic Veins: Unremarkable. Gallbladder and Biliary Tract: No radiodense calculus or dilation. The gallbladder is contracted. Pancreas: Normal density, no abnormal calcifications or inflammatory process. Spleen: Normal. Adrenals: No masses seen. Kidneys: Normal size, contour and axis. No radiodense stones or obstructive uropathy. No masses seen. Abdominal Aorta: Abdominal portion non-dilated. Bowel: No evidence of bowel wall thickening. The colon is poorly distended limiting evaluation. No evidence of appendicitis. There is intramural fat seen in the wall of the colon which can be seen wi th chronic inflammatory colitis. Peritoneal Cavity: No ascites, collection or mesenteric inflammatory response. No free air. Lymph Nodes: Within normal limits. Bones: Within normal limits for the patient's age. Soft Tissues: Unremarkable. PELVIS: Bladder: Symmetric distention, no gross wall thickening. Reproductive Organs: Unremarkable as visualized. Lymph Nodes: Within normal limits. Bones: Within normal limits for the patient's age. IMPRESSION: 1. No definite acute abdominal or pelvic process. 2. Intramural fat deposition of the colon which can be seen with chronic inflammatory processes. 3. No pericolonic inflammatory changes are seen. RADIATION DOSE DELIVERED: Total DLP DATA REPOSITORY: All CT scans at this facility are submitted to the National Radiology Data Registry (NRDR) Dose Index Registry (DIR) with the [employer] (ACR). RADIATION OPTIMIZATION: All CT scans at this facility use at least one of these dose optimization te chniques: automated exposure control; mA and/or kV adjustment per patient size (includes targeted exa ms where dose is matched to clinical indication); or iterative reconstruction.
--- NOTE | 2023-10-11 01:58 | W.ED.GENAD ---
Discharge Plan Discharge Details Chief Complaint: Urinary Primary Care Provider: Fernandez Cortez ED Provider: Carolyn Goldsmith [facility] General Mode of arrival: ambulatory. Date/Time Provider Initiated Documentation: 10/11/23 01:24. Limitations to Documentation: no limitations. Information obtained by: patient and old records reviewed. HPI Narrative: 43yo M with hx asthma, colitis, presenting for pain. Reports bilateral flank pain, severe, as well as abdominal pain and pain all over. Does not feel like prior flares of colitis. Never experienced similar pain before. Unable to specifically localize pain within back or abdomen. Associated nausea, no vomiting. No diarrhea. Some dysuria and urinary frequency, denies hematuria. No prior hx of kidney stones or UTI. No fevers, chills, rash, chest pain, shortness of breath, numbness, tingling, weakness, or other concerns. Related Data Allergies Allergy/AdvReac Type Severity Reaction Status Date / Time Sulfa (Sulfonamide AdvReac Intermediate Unverified 07/14/23 16:02 Antibiotics) amoxicillin AdvReac Mild Pt states Unverified 07/14/23 16:02 ineffective General Stated Complaint: Urinary KANDICE: 3 Review of Systems Narrative: see HPI Course Vital Signs Vital signs: Vital Signs Temperature 36.3 C L 10/11/23 01:27 Pulse 88 10/11/23 01:27 Respiratory Rate 20 10/11/23 01:27 Blood Pressure 150/106 H 10/11/23 01:27 Pulse Oximetry 99 10/11/23 01:27 Temperature 36.3 C L 10/11/23 01:38 Pulse 88 10/11/23 01:38 Respiratory Rate 20 10/11/23 01:38 Respiratory Effort Normal, Non-Labored 10/11/23 01:35 Blood Pressure 150/106 H 10/11/23 01:38 Blood Pressure Position Supine 10/11/23 01:38 Pulse Oximetry 99 10/11/23 01:38 Oxygen Delivery Method Room Air 10/11/23 01:38 Oxygen Flow Rate 0 10/11/23 01:38 Pain Level 10 10/11/23 01:38 Medical Decision Making 43yo M with hx asthma, colitis, presenting for pain. Reports bilateral flank pain, severe, as well as abdominal pain and pain all over. Does not feel like prior flares of colitis. Never experienced similar pain before. Unable to specifically localize pain within back or abdomen. Associated nausea, no vomiting. No diarrhea. Some dysuria and urinary frequency, denies hematuria. No prior hx of kidney stones or UTI. No fevers, chills, rash, chest pain, shortness of breath, numbness, tingling, weakness, or other concerns. Upon initial assessment patient requests to remove blood pressure cuff as it is causing excruciating pain; nursing noted that patient yelled out in pain when IV inserted. Given exaggerated response to moderately noxious stimuli suspect component of systemic hyperalgesia and patient with essentially normal physical exam however described symptoms are concerning and could certainly represent serious pathology. Broad differential given inability to localize pain on history or exam; will evaluate broadly with labs, CT for aortic dissection, CT abd/pelvis for intradominal pathology including obstruction/appendix/hydronephrosis/colitis/nephrolithiasis etc. CTA chest independently reviewed, no aortic dissection on my view, agree with radiology read below. CT abd/pelvis independently reviewed, no obstruction or free fluid on my view, radiology read below consistent with colitis. Labs reviewed as below, CBC with marked leukocytosis to 19, CMP with elevated AST/ALT/ALP concerning for acute gallbladder pathology, lactate marginally elevated at 2.5, lipase elevated at 311 concerning for pancreatitis. UA with significant hematuria, no signs of infection, concerning for possible stone. On reassessment patient much more comfortable after toradol. Abdominal exam remains benign with absolutely no epigastric or RUQ tenderness and negative Brown's. CT not diagnostic for cholecystitis/pancreatitis however no secondary findings of such noted, and no stone noted to explain hematuria. Repeat lactate after IVF normalized, repeat CMP ordered. Would like to get ultrasound to further evaluate gallbladder however not available overnight/weekends; reached out to attempt to call someone in. Awaiting response from US and repeat CMP. Signed out to oncoming physician, plan to followup CMP and US. Lab Data Lab results reviewed: Yes I reviewed the patient's lab results. Labs: Laboratory Tests Range/Units 10/11/23 10/11/23 10/11/23 01:37 02:03 02:37 WBC (4.4-10.8) 10^3/uL 19.20 H RBC (4.36-5.78) 10^6/uL 4.57 Hgb (13.5-17.5) g/dL 14.1 Hct (40.0-50.0) % 43.9 MCV (80-95) fL 96 H MCH (27.0-33.0) pg 30.9 MCHC (32.0-36.0) % 32.1 RDW (11.8-14.1) % 13.2 Plt Count (130-400) 10^3/uL 354 MPV (8.0-11.0) fL 9.0 Immature Gran % 0.0 Neutrophils % 59.0 Lymphocytes % 27.0 Atypical Lymphs % 3 Monocytes % 8.0 Eosinophils % 3.0 Basophils % 0.0 Nucleated RBC % (0.0-0.3) % 0.0 Absolute Neutrophils (1.2-6.7) 10^3/uL 11.33 H Absolute Lymphocytes (1.2-3.4) 10^3/uL 5.76 H Absolute Monocytes (0.1-0.8) 10^3/uL 1.54 H Absolute Eosinophils (0.0-0.7) 10^3/uL 0.58 Absolute Basophils (0.0-0.2) 10^3/uL 0.00 RBC Morphology Normal VBG Lactate (0.6-1.4) mmol/L 2.5 H* Sodium Cancelled 137 Potassium Cancelled 4.1 Chloride Cancelled 103 Carbon Dioxide Cancelled 27.9 Anion Gap Cancelled 6.1 BUN Cancelled 14 Creatinine Cancelled 0.9 Est GFR (CKD-EPI 2020) Cancelled 109.36 Glucose Cancelled 95 Calcium Cancelled 8.1 L Total Bilirubin Cancelled 0.3 AST Cancelled 58 H ALT Cancelled 97 H Alkaline Phosphatase Cancelled 122 H Total Protein Cancelled 6.8 Albumin Cancelled 2.9 L Lipase (16-77) U/L Urine Color (Yellow) Yellow Urine Clarity (Clear) Clear Urine pH (5-8) 6.5 Ur Specific [place] (1.005-1.025) 1.020 Urine Protein (Neg-Trace) mg/dL 100 H Urine Ketones (Negative) mg/dL Negative Urine Blood (Negative) Large H Urine Nitrite (Negative) Negative Urine Bilirubin (Negative) Negative Urine Urobilinogen (Up to 0.2) mg/dL 0.2 Ur Leukocyte Esterase (Negative) Negative Urine RBC (0-2) HPF >50 H Urine WBC (0-5) HPF Negative Ur Epithelial Cells (Negative) HPF Negative Urine Crystals (Negative) HPF Negative Urine Bacteria (Negative) HPF Few Urine Casts (Negative) LPF Negative Urine Mucus (Negative) Negative Ur Culture Indicated? No Urine Glucose (Negative) mg/dL Negative Range/Units 10/11/23 04:08 WBC (4.4-10.8) 10^3/uL RBC (4.36-5.78) 10^6/uL Hgb (13.5-17.5) g/dL Hct (40.0-50.0) % MCV (80-95) fL MCH (27.0-33.0) pg MCHC (32.0-36.0) % RDW (11.8-14.1) % Plt Count (130-400) 10^3/uL MPV (8.0-11.0) fL Immature Gran % Neutrophils % Lymphocytes % Atypical Lymphs % Monocytes % Eosinophils % Basophils % Nucleated RBC % (0.0-0.3) % Absolute Neutrophils (1.2-6.7) 10^3/uL Absolute Lymphocytes (1.2-3.4) 10^3/uL Absolute Monocytes (0.1-0.8) 10^3/uL Absolute Eosinophils (0.0-0.7) 10^3/uL Absolute Basophils (0.0-0.2) 10^3/uL RBC Morphology VBG Lactate (0.6-1.4) mmol/L 1.0 Sodium Potassium Chloride Carbon Dioxide Anion Gap BUN Creatinine Est GFR (CKD-EPI 2020) Glucose Calcium Total Bilirubin AST ALT Alkaline Phosphatase Total Protein Albumin Lipase (16-77) U/L 311 H Urine Color (Yellow) Urine Clarity (Clear) Urine pH (5-8) Ur Specific [place] (1.005-1.025) Urine Protein (Neg-Trace) mg/dL Urine Ketones (Negative) mg/dL Urine Blood (Negative) Urine Nitrite (Negative) Urine Bilirubin (Negative) Urine Urobilinogen (Up to 0.2) mg/dL Ur Leukocyte Esterase (Negative) Urine RBC (0-2) HPF Urine WBC (0-5) HPF Ur Epithelial Cells (Negative) HPF Urine Crystals (Negative) HPF Urine Bacteria (Negative) HPF Urine Casts (Negative) LPF Urine Mucus (Negative) Ur Culture Indicated? Urine Glucose (Negative) mg/dL Quality:SDOH Health Related Social Needs: No Data to Display PFSH All Active Problems [place] granules (Acute) Torus mandibularis (Acute) Surgical History Colonoscopy - MAC (07/12/16) Social History Smoking/Tobacco Use Status: Former Tobacco Use Smoking risk assessment performed?: Yes Alcohol Intake: current Alcohol Intake frequency: a few times a month Alcohol type: other Drug use: Never Do you feel safe at home: Yes Do you feel safe in your relationship?: Yes Sign Out Sign Out Data: Sign Out Comment: 43yo M billateral flank pain improved with toradol. CT essentially neg (some colitis), labs with elevated lactic/ast/alt/alp/lipase concerning for gb pathology/pancreatitis however no abdominal tenderness on exam. UA with hematuria. Pending repeat CMP and US Last updated by Carolyn Goldsmith MD at 10/11/23 07:20
[2023-10-11 02:03] LABS: Abs Immature Grans 0.07 10^3/uL (0.0-0.06); HCT 43.9 % (40.0-50.0); HGB 14.1 g/dL (13.5-17.5); MCH 30.9 pg (27.0-33.0); MCHC 32.1 % (32.0-36.0); MCV 96 fL (80-95); Platelet Count 354 10^3/uL (130-400); RBC 4.57 10^6/uL (4.36-5.78); RDW 13.2 % (11.8-14.1); RDW-SD 47.5 fL
[2023-10-11] MEDS: Ketorolac 15 MG/ML VIAL IVP (02:04)
[2023-10-11 02:07] LABS: Bilirubin Negative (Negative); Blood Large (Negative); Clarity Clear (Clear); Glucose Negative (Negative); Ketones Negative (Negative); Leukocyte Esterase Negative (Negative); Nitrite Negative (Negative); Urobilinogen 0.2 mg/dL (Up to 0.2); pH 6.5 (5-8)
[2023-10-11 02:07] LABS: Lactate 2.5 mmol/L (0.6-1.4)
[2023-10-11 02:12] LABS: Absolute Neutrophil Count 11.33 10^3/uL (1.2-6.7)
[2023-10-11] MEDS: Normal Saline 1,000 ML 1000 ML IV ×2 (02:12→05:29)
[2023-10-11 02:13] LABS: Epithelial Cells Negative HPF (Negative); RBC >50 HPF (0-2); WBC Negative HPF (0-5)
[2023-10-11 02:13] LABS: Absolute Eosinophil Count 0.58 10^3/uL (0.0-0.7); Absolute Lymphocyte Count 5.76 10^3/uL (1.2-3.4); Absolute Monocyte Count 1.54 10^3/uL (0.1-0.8); Atypical Lymphocytes % 3; Diff Comment Manual Differential; RBC Morphology Normal
[2023-10-11 02:14] LABS: Bacteria Few HPF (Negative); C & S Indicated? No; Casts Negative LPF (Negative); Crystals Negative HPF (Negative); Mucus Negative (Negative)
[2023-10-11] MEDS: Omnipaque 350 MG/ML 100 ML BTL IJ (02:40)
[2023-10-11] MEDS: Normal Saline Flush 10 ML SYR IVP (02:41)
[2023-10-11] MEDS: Normal Saline - Diluent 50 ML VIAL IJ (02:41)
[2023-10-11 02:56] LABS: ALT 97 U/L (16-63); AST 58 U/L (15-37); Albumin 2.9 g/dL (3.4-5.0); Alkaline Phosphatase 122 U/L (46-116); Anion Gap 6.1 mmol/L (3-11); BUN 14 mg/dL (7-18); Bilirubin, Total 0.3 mg/dL (0.2-1.0); CO2 27.9 mmol/L (21.0-32.0); CREATININE 0.9 mg/dL (0.70-1.30); Calcium 8.1 mg/dL (8.5-10.1); Chloride 103 mmol/L (98-107); Estimated GFR 109.36 (mL/min/1.73m2); Glucose 95 mg/dL (74-106); Potassium 4.1 mmol/L (3.5-5.1); Sodium 137 mmol/L (136-145); Total Protein 6.8 g/dL (6.4-8.2)
--- NOTE | 2023-10-11 03:59 | DI.VRAD_ITS ---
PROCEDURE INFORMATION: Exam: CT Abdomen And Pelvis With Contrast Exam date and time: 10/11/2023 2:10 AM Age: 43 years old Clinical indication: Abdominal pain; Additional info: Abdominal pain radiating into back \T\ flanks TECHNIQUE: Imaging protocol: Computed tomography of the abdomen and pelvis with contrast. Contrast material: OMNI 350; Contrast volume: 100 ml; Contrast route: INTRAVENOUS (IV); COMPARISON: CT ABDOMEN PELVIS W 07/14/2023 1:37 PM FINDINGS: Lungs: CT scan of the chest dictated separately. Liver: No focal hepatic lesion identified. Gallbladder and bile ducts: No radiodense gallbladder calculi seen. Pancreas: No CT evidence for acute pancreatitis. Spleen: No splenomegaly. Adrenal glands: No mass. Kidneys and ureters: No hydronephrosis or evidence for pyelonephritis. Stomach and bowel: No intestinal obstruction is evident. Fluid in nondilated small bowel, nonspecific. The sigmoid colon is suboptimally evaluated secondary to underdistention but appears thickened. This is similar to prior study. Intramural fat deposition in the colon, nonspecific but can be seen in chronic inflammatory conditions. Please correlate clinically. Appendix: No evidence of appendicitis. Intraperitoneal space: No free air. Vasculature: No abdominal aortic aneurysm. Lymph nodes: Nonspecific mesenteric and retroperitoneal lymph nodes. Urinary bladder: No acute findings. Reproductive: No acute findings. Bones/joints: No pertinent acute abnormality seen. Soft tissues: No pertinent acute abnormality seen. IMPRESSION: 1. Thickening of the sigmoid colon, suboptimally evaluated secondary to underdistention but cannot exclude colitis. The appearance is similar to prior study and there is intramural fat deposition suggesting possible chronic inflammatory process. Please correlate clinically. 2. Fluid in nondilated small bowel, nonspecific and can be a normal finding or reflective of mild inflammation. 3. Additional studies dictated separately. Dictated and Authenticated by: Rocio Lujan MD. Ordering:RANDY Leon MD
--- NOTE | 2023-10-11 03:59 | DI.VRAD_ITS ---
PROCEDURE INFORMATION: Exam: CTA Chest With Contrast Exam date and time: 10/11/2023 2:10 AM Age: 43 years old Clinical indication: Other: Abdominal pain radiating into back \T\ flanks TECHNIQUE: Imaging protocol: Computed tomographic angiography of the chest with contrast. Exam focused on the arteries. 3D rendering (Not supervised by radiologist): MIP and/or 3D reconstructed images were created by the technologist. Contrast material: OMNI 350; Contrast volume: 100 ml; Contrast route: INTRAVENOUS (IV); COMPARISON: No relevant prior studies are available for comparison. FINDINGS: Limitations: Mild motion artifact. Pulmonary arteries: No pulmonary embolus is appreciated. Aorta: No thoracic aortic aneurysm seen. Lungs: No focal consolidation seen. Pleural spaces: No pleural effusion. Heart: Borderline cardiomegaly. Lymph nodes: Nonspecific mediastinal lymph nodes. Intraperitoneal space: CT scan of the abdomen and pelvis dictated separately. Bones/joints: No acute pertinent abnormality seen. Soft tissues: Gynecomastia. IMPRESSION: 1. No pulmonary embolus is appreciated. 2. Additional studies dictated separately. Dictated and Authenticated by: Rocio Lujan MD. Ordering:RANDY Leon MD
[2023-10-11 04:36] LABS: Lipase 311 U/L (16-77)
--- NOTE | 2023-10-11 07:30 | DI.US_ITS ---
Exam(s) US ABDOMEN LIMITED EXAM: US ABDOMEN LIMITED CLINICAL HISTORY: elevated LFTs, lipase; eval GB/pancreas TECHNIQUE: Ultrasound abdomen performed using standard protocol. COMPARISON: CT CT ABDOMEN PELVIS W from 10/11/2023 FINDINGS: PANCREAS: Normal where visualized. LIVER: Normal. Hepatopetal flow in the Portal Vein. The liver measures in 16.5 cm length. No evidence of a hepatic mass. GALLBLADDER: No evidence of cholelithiasis. No evidence of wall thickening. No pericholecystic fluid identified. BILIARY SYSTEM: Common bile duct measures < 7 mm. No intrahepatic biliary ductal dilation. There is s ome debris the common duct suggesting sludge. No stones are seen. LOPEZ'S SIGN: Negative. RIGHT KIDNEY: Kidney is normal in size. No evidence of renal calculi. No evidence of hydronephrosis. No renal mass or cyst identified. ASCITES: None seen. IMPRESSION: 1. No cholelithiasis or biliary ductal dilatation. 2. Debris seen within the common duct which may represent sludge. No stones are seen sonographically . DATA REPOSITORY:
--- NOTE | 2023-10-11 08:37 | W.EDPROG ---
Date of service: 10/11/23 Time of Service: 08:37 Medical Decision Making I received signout at bedside on this 43-year-old male with diffuse abdominal pain now improved status post ketorolac. He had a CT negative for dissection with no ureterolithiasis. He is lactate resolved following 2 L of IV fluids. He is pending a right upper quadrant ultrasound in the setting of abnormal LFTs. He is also pending a repeat comprehensive metabolic panel. Will discharge with PCP follow-up if CMP does not show any worsening LFT abnormalities and ultrasound is not consistent with acute cholecystitis. 8:56 AM Virtual radiology read showing minimal gallbladder wall thickening of indeterminate significance. Gallbladder wall thickness was 3.3 mm. In the absence of any right upper quadrant tenderness and given the patient is tolerating p.o. without any cholelithiasis I do not feel that this ultrasound is consistent with acute cholecystitis. Patient is pending repeat LFTs. 9:40 AM Repeat comprehensive metabolic panel showing near stable LFTs with slightly worsened alkaline phosphatase and ALT but improved AST. Formal radiology read showing no cholelithiasis or biliary ductal dilatation. Given that patient was feeling improved and tolerating p.o. I discharged with empiric trial of expectant outpatient management. Quality:SDSD Health Related Social Needs: No Data to Display Sign Out Sign Out Data: Sign Out Comment: 43yo M billateral flank pain improved with toradol. CT essentially neg (some colitis), labs with elevated lactic/ast/alt/alp/lipase concerning for gb pathology/pancreatitis however no abdominal tenderness on exam. UA with hematuria. Pending repeat CMP and US Last updated by Carolyn Goldsmith MD at 10/11/23 07:20 Discharge Plan Disposition Patient Disposition: Home Discharge Details Clinical Impression: Abdominal pain Primary Care Provider: Fernandez Cortez ED Provider: Fernandez [place] Discharge Instructions Instructions: Abdominal Pain (ED) Additional Instructions: You are seen in the emergency department for your abdominal pain. Your urine showed some blood in the urine, or hematuria. Your ultrasound showed no gallstones. Please return to the emergency department if you develop fevers cannot eat or drink as felt of nausea or vomiting or have any other concerns. Otherwise please follow-up with your primary care provider next week. For your pain please take medications as follows: 1. Take acetaminophen (Tylenol), 1,000 mg (two 500 mg tabs) every 6 hours [2. Take ibuprofen (Advil), 400 mg every 6 hours.]
--- NOTE | 2023-10-11 08:42 | DI.VRAD_ITS ---
PROCEDURE INFORMATION: Exam: US Abdomen, Limited; Right Upper Quadrant Exam date and time: 10/11/2023 7:56 AM Age: 43 years old Clinical indication: Other: Right flank pain; Patient HX: Cta / CT ab pel 10/10/23 TECHNIQUE: Imaging protocol: Real time ultrasound of the abdomen with image documentation. Limited exam focused on the right upper quadrant. COMPARISON: No relevant prior studies are available for comparison. FINDINGS: Liver: No focal hepatic lesion demonstrated. Gallbladder: Gallbladder wall minimally thickened to 3.3 mm. No gallbladder calculi are identified. No sonographic Brown's sign was elicited. Biliary ducts: Common bile duct nondilated. It contains echoes which may represent sludge. Pancreas: Pancreas not well visualized. Right kidney: No right hydronephrosis demonstrated. IMPRESSION: 1. Minimal gallbladder wall thickening, indeterminate significance. No additional findings to confirm cholecystitis at this time. 2. Suspect sludge in the common bile duct. Dictated and Authenticated by: Rocio Lujan MD. Ordering:RANDY Leon MD
[2023-10-11 09:21] LABS: ALT 101 U/L (16-63); AST 49 U/L (15-37); Albumin 3.1 g/dL (3.4-5.0); Alkaline Phosphatase 135 U/L (46-116); BUN 11 mg/dL (7-18); Bilirubin, Total 0.4 mg/dL (0.2-1.0); CREATININE 0.8 mg/dL (0.70-1.30); Calcium 8.3 mg/dL (8.5-10.1); Chloride 108 mmol/L (98-107); Estimated GFR 113.32 (mL/min/1.73m2); Glucose 107 mg/dL (74-106); Potassium 3.9 mmol/L (3.5-5.1); Sodium 143 mmol/L (136-145); Total Protein 7.3 g/dL (6.4-8.2)
[2023-10-11 09:57] VITALS: BP 109/69; PULSE 83; RESP 14; TEMP 36.8; O2SAT 99
== END 2023-10-11 10:00 | disposition home or self-care (01) ==
PROVIDERS: Student in an Organized Health Care Education/Training Program; Emergency Provider Emergency Medicine; PCP Family Medicine
DX: R35.0 Frequency of micturition; R30.9 Painful micturition, unspecified; R31.9 Hematuria, unspecified; R10.9 Unspecified abdominal pain
CPT/HCPCS: 00123; 71275; 80053; 83690; 96361; 96374; 99285; 74177; 76705; 81003; 81015; 83605; 85025; 99283; J1885; J3490

== ENCOUNTER 2023-10-21 04:59 | Outpatient (CLI) | payer MEDICAID, SELFPAY ==
--- NOTE | 2023-10-21 11:05 | TELEFU_ITS ---
Date of service: 10/21/23 Time of Service: 01:00 Nutrition Note NOTE: Pt is 43yo male referred for MNT regarding ulcerative colitis with difficulty maintaining weight.? Alonso was 66.14? and 142lbs (with clothes) at provider appointment 09/05/23, which results in a ?normal? BMI of 22.8kg/m2.? Pt reports that he had swollen lymph nodes in groin area around beginning of July 2023 and was given Rx for ABX.? He reports he developed significant abdominal pain, with ?non-stop? diarrhea at least 5x/day with wt loss.? States he lost 20-30 pounds and was screened for C. Diff.,? which came back positive and took some time before he started feeling better.? He now is interested in help with gaining weight back to some degree and working on a diet pattern that will help manage his GI concerns. Estimated energy needs for wt maintenance: 1936kcals (REEx1.3AF), 76.8g protein (1.2g/kg), 1936mL fluid (1mL per required kcal). Reviewed with pt general goal with colitis issues is to work from a tolerated baseline of food choices that are lower in fiber and slowly work on expanding va riety and increasing fiber as tolerated - better to work at smaller, more frequent meals to start at least and work to incorporate foods/beverages/spices/supplements that may help minimize inflammation. Reviewed specific foods to avoid unless he is certain he tolerates them - spicy, greasy/fried foods, caffeine and high acid foods and beverages, carbonated beverages, gas producing veggies and other identified problem foods choices. Reviewed supplements to consider: -with periods of excessive diarrhea consider OHS that is low in sugar, and contains electrolytes. Zinc, and maybe some magnesium glycinate. -suggested MVI daily that contains iron and goal of 2,000IU vitamin D3 -Also suggested trial of digestive enzymes that are indicated for all 3 macros (protease, lipase, amylase etc) to take before eating, L-glutamine at 2-5g per day and trial of banatrol for diarrhea management and source of prebiotics. Reviewed concepts of anti-inflammatory diet and what foods are incorporated and avoided and stressed lower fiber choices or using a director behavioral health to get healthy choices mechanically pre-digested as in using berries, nuts/seeds as he tolerates these. Also suggested food/sx diary to help identify trigger foods to avoid and foods that seems to be well tolerated. for wt gain suggested using starch sources liberally for awhile and getting protein needs met (using additional whey protein if tolerated) and can use some MCT oil in small amounts to see if tolerated for some extra easy to absorb fat kcals. Asked him to focus on mgt first and wt gain second as wt gain won't come unless he is tolerating a consistent intake. We came up short on time and felt like a follow appt to do focus work on menu planning was a good idea. Pt scheduled this for 11/12/23 Time Spent in Nutritional Counseling and Treatment: 45 minutes
== END 2023-10-21 05:00 | disposition home or self-care (01) ==
PROVIDERS: PCP Family Medicine; Visit Provider Family Medicine
DX: K51.90 Ulcerative colitis, unspecified, without complications (principal)
CPT/HCPCS: 00123; 97802

== ENCOUNTER 2024-02-27 16:32 | Outpatient (REF) | payer MEDICAID, SELFPAY ==
[2024-02-27 17:15] LABS: C Diff PCR Negative (Negative)
== END 2024-02-27 16:33 | disposition home or self-care (01) ==
LOC: LBN 16:32
PROVIDERS: PCP Nurse Practitioner Family; Visit Provider Nurse Practitioner Adult Health
DX: R19.7 Diarrhea, unspecified (principal)
CPT/HCPCS: 87493

== ENCOUNTER 2024-10-20 12:18 | Outpatient (CLI) | payer MEDICAID, SELFPAY ==
[2024-10-20 12:50] LABS: HCT 44.7 % (40.0-50.0); HGB 15.2 g/dL (13.5-17.5); MCH 30.5 pg (27.0-33.0); MCV 90 fL (80-95); MPV 9.2 fL (8.0-11.0); Platelet Count 264 10^3/uL (130-400); RBC 4.99 10^6/uL (4.36-5.78); RDW-SD 42.6 fL; WBC 8.67 10^3/uL (4.4-10.8)
[2024-10-20 21:38] LABS: ALT 48 U/L (16-63); AST 21 U/L (15-37); Albumin 4.3 g/dL (3.4-5.0); Alkaline Phosphatase 48 U/L (46-116); Anion Gap 12.3 mmol/L (3-11); BUN 14 mg/dL (7-18); Bilirubin, Total 0.9 mg/dL (0.2-1.0); CO2 25.7 mmol/L (21.0-32.0); CREATININE 0.9 mg/dL (0.70-1.30); Calcium 9.7 mg/dL (8.5-10.1); Calculated LDL 95 mg/dL (<100); Chloride 106 mmol/L (98-107); Cholesterol 187 mg/dL (<200); Estimated GFR 108.68 (mL/min/1.73m2); Glucose 111 mg/dL (74-106); HDL Cholesterol 72 mg/dL (>or=40); Potassium 3.8 mmol/L (3.5-5.1); Sodium 144 mmol/L (136-145); Triglyceride 100 mg/dL (<150)
[2024-10-20 22:01] LABS: Lipase 15 U/L (<78)
[2024-10-20 22:02] LABS: C-Reactive Protein < 0.50 mg/dL (<or=0.5)
[2024-10-22 12:52] LABS: TB Interpretation Negative (Negative); TB2 Ag minus Nil 0.12 IU/mL
== END 2024-10-20 12:19 | disposition home or self-care (01) ==
LOC: LBO 12:18
PROVIDERS: PCP Nurse Practitioner Family; Visit Provider Nurse Practitioner Family
DX: K51.90 Ulcerative colitis, unspecified, without complications (principal); Z11.1 Encounter for screening for respiratory tuberculosis
CPT/HCPCS: 36415; 80053; 80061; 83690; 85027; 86140; 86480

== ENCOUNTER 2024-11-22 15:58 | Outpatient (REF) | payer MEDICAID, SELFPAY ==
[2024-11-22 23:02] LABS: Campylobacter PCR Negative (Negative); Salmonella PCR Negative (Negative); Shiga Toxin PCR Negative (Negative); Shigella/Enteroinvasive Ecoli Negative (Negative)
[2024-11-25 14:14] LABS: Calprotectin 1872 mcg/g
== END 2024-11-22 15:59 | disposition home or self-care (01) ==
LOC: LBN 15:58
PROVIDERS: PCP Nurse Practitioner Family; Visit Provider Nurse Practitioner Adult Health
DX: K51.40 Inflammatory polyps of colon without complications (principal)
CPT/HCPCS: 87505; 83993

== ENCOUNTER 2025-03-01 16:47 | Outpatient (REF) | payer MEDICAID, SELFPAY | END 2025-03-01 16:48 | disposition home or self-care (01) | LOC: LBN 16:47 | PROVIDERS: PCP Nurse Practitioner Family; Visit Provider Nurse Practitioner Adult Health | DX: K51.00 Ulcerative (chronic) pancolitis without complications (principal); R19.7 Diarrhea, unspecified | CPT/HCPCS: 87507 ==

== ENCOUNTER 2025-05-16 12:50 | Outpatient (CLI) | payer MEDICAID, SELFPAY ==
[2025-05-16 12:50] LABS: ALT 19 U/L (16-63); AST 17 U/L (15-37); Albumin 2.7 g/dL (3.4-5.0); Alkaline Phosphatase 68 U/L (46-116); Anion Gap 6.3 mmol/L (3-11); BUN 12 mg/dL (7-18); Bilirubin, Total 0.2 mg/dL (0.2-1.0); CO2 29.7 mmol/L (21.0-32.0); Calcium 8.9 mg/dL (8.5-10.1); Chloride 103 mmol/L (98-107); Ferritin 9 ng/mL (26-388); Glucose 97 mg/dL (74-106); Potassium 4.2 mmol/L (3.5-5.1); Sodium 139 mmol/L (136-145); Total Protein 7.7 g/dL (6.4-8.2)
[2025-05-18 11:47] LABS: TB Interpretation Negative (Negative); TB1 Ag minus Nil 0.01 IU/mL; TB2 Ag minus Nil 0.01 IU/mL
== END 2025-05-16 12:51 | disposition home or self-care (01) ==
LOC: LBO 12:51
PROVIDERS: PCP Nurse Practitioner Family; Visit Provider Family Medicine
DX: K51.90 Ulcerative colitis, unspecified, without complications (principal); R05.3 Chronic cough
CPT/HCPCS: 36415; 80053; 82728; 86480

== ENCOUNTER 2025-05-17 12:58 | Outpatient (CLI) | payer MEDICAID, SELFPAY ==
[2025-05-17 13:27] LABS: HCT 31.6 % (40.0-50.0); HGB 9.8 g/dL (13.5-17.5); MCH 26.3 pg (27.0-33.0); MCHC 31.0 % (32.0-36.0); MCV 85 fL (80-95); MPV 7.9 fL (8.0-11.0); Platelet Count 528 10^3/uL (130-400); RBC 3.73 10^6/uL (4.36-5.78); RDW 13.6 % (11.8-14.1); RDW-SD 42.2 fL; WBC 12.58 10^3/uL (4.4-10.8)
== END 2025-05-17 12:59 | disposition home or self-care (01) ==
LOC: LBO 13:00
PROVIDERS: Visit Provider Family Medicine
DX: K51.90 Ulcerative colitis, unspecified, without complications (principal)
CPT/HCPCS: 36415; 85027

== ENCOUNTER → 2025-05-20 03:18 | Outpatient (CLI) | payer MEDICAID, SELFPAY ==
--- NOTE | 2025-05-20 | DI.CT_ITS ---
Exam(s) CT ABDOMEN PELVIS WO EXAM: CT ABDOMEN PELVIS WO CLINICAL HISTORY: LT FLANK PAIN, R10.A2. TECHNIQUE: Imaging Protocol: Axial computed tomography images with coronal and sagittal reformatted images were created and reviewed. COMPARISON: CT CT ABDOMEN PELVIS W from 07/14/[address] ABDOMEN PELVIS W from 10/11/[address] THORAX CTA from 10/11/2023 FINDINGS: The lack of IV contrast does limit evaluation of the abdominal pelvic organs. ABDOMEN: Lung Bases: There are no infiltrates or suspicious nodules in the lung bases. Liver: Normal density. No measurable mass. Gallbladder and biliary tract: No radiodense calculus or biliary ductal dilation. The gallbladder is contracted. Pancreas: Normal density, no abnormal calcifications or inflammatory process. Spleen: Normal. Kidneys: Normal size, contour and axis.No radiodense stones or obstructive uropathy. No masses seen. Adrenal glands: No mass is seen. Lymph nodes: Within normal limits. Abdominal Aorta: Abdominal portion non-dilated. Minimal atherosclerotic calcification is present. PELVIS: Bladder:Symmetric distention, no gross wall thickening. Bowel: There is diffuse wall thickening of the colon with sparing of portion of the cecum and ascending colon. No pericolonic inflammation is seen. No diverticula are noted. There is no evidence of bowel obstruction. The small bowel is unremarkable. There is no pneumatosis. There is no evidence of appendicitis. Peritoneal cavity: No ascites, collection or mesenteric inflammatory response. No free air. Reproductive organs: Unremarkable as visualized. Bones: Within normal limits. Soft Tissues: Within normal limits. IMPRESSION: 1. There is no evidence of nephrolithiasis or obstructive uropathy. 2. Diffuse wall thickening of the colon with sparing of the cecum and portions of the ascending colon. No pericolonic inflammation is seen. There is no evidence of diverticulosis. Concern for a chronic inflammatory bowel process such as ulcerative colitis should be considered. Neoplasm is considered less likely but cannot be entirely excluded. RADIATION DOSE DELIVERED: 287.79mGy.cm Total DLP DATA REPOSITORY: All CT scans at this facility are submitted to the National Radiology Data Registry (NRDR) Dose Index Registry (DIR) with the [employer] (ACR). RADIATION OPTIMIZATION: All CT scans at this facility use at least one of these dose optimization techniques: automated exposure control; mA and/or kV adjustment per patient size (includes targeted exams where dose is matched to clinical indication); or iterative reconstruction.
== END ==
PROVIDERS: PCP Nurse Practitioner Family; Visit Provider Family Medicine
DX: R10.A2 Flank pain, left side (principal)
CPT/HCPCS: 74176

== ENCOUNTER 2025-06-01 14:57 | Outpatient (REF) | payer MEDICAID, SELFPAY ==
[2025-06-01 11:51] LABS: Abs Immature Grans 0.10 10^3/uL (0.0-0.06); HCT 32.6 % (40.0-50.0); HGB 10.2 g/dL (13.5-17.5); Immature Grans % 0.8 %; MCH 26.2 pg (27.0-33.0); MCHC 31.3 % (32.0-36.0); MCV 84 fL (80-95); MPV 8.2 fL (8.0-11.0); Platelet Count 550 10^3/uL (130-400); RBC 3.89 10^6/uL (4.36-5.78); RDW 14.7 % (11.8-14.1); RDW-SD 43.9 fL; WBC 12.85 10^3/uL (4.4-10.8)
== END 2025-06-01 14:58 | disposition home or self-care (01) ==
LOC: LBN 14:57
PROVIDERS: PCP Nurse Practitioner Family; Visit Provider Internal Medicine Pulmonary Disease
DX: R05.3 Chronic cough (principal)
CPT/HCPCS: 85025

== ENCOUNTER 2025-06-07 01:55 | Outpatient (RCR) | payer MEDICAID, SELFPAY ==
[2025-05-24] MEDS: IRON SUCROSE COMPLEX 300 MG in Normal Saline 250 ML 176.667 MG IVPB (12:18)
[2025-05-24] MEDS: Normal Saline Flush 10 ML SYR IVP (12:18)
[2025-05-31] MEDS: Normal Saline Flush 10 ML SYR IVP (11:58)
[2025-05-31] MEDS: IRON SUCROSE COMPLEX 300 MG in Normal Saline 250 ML 176.667 MG IVPB (11:58)
[2025-06-07] MEDS: Normal Saline Flush 10 ML SYR IVP (12:01)
[2025-06-07] MEDS: IRON SUCROSE COMPLEX 300 MG in Normal Saline 250 ML 176.667 MG IVPB (12:01)
== END 2025-06-12 23:59 | disposition home or self-care (01) ==
LOC: INF 01:55
PROVIDERS: PCP Nurse Practitioner Family; Visit Provider Nurse Practitioner Acute Care
DX: D50.9 Iron deficiency anemia, unspecified (principal)
CPT/HCPCS: 96365; 96366; J1756

== ENCOUNTER 2025-06-10 02:23 | Outpatient (CLI) | payer MEDICAID, SELFPAY ==
[2025-06-10] MEDS: Inhaler, Assist Device 1 EACH MC (11:44)
[2025-06-10] MEDS: Levalbuterol HFA 15 GM INH 4 PUFF IH (11:45)
--- NOTE | 2025-06-13 12:53 | W.PFT ---
Date of service: 06/10/25 Time of Service: 10:02 Pulmonary Function Test Result Indications: Cough, dypsnea Impression 1. Good patient effort was noted. ATS standards for reproducibility were met. 2. Normal spirometry. 3. Following the administration of a bronchodilator there was not a significant response 4. TLC was normal. No evidence of restrictive lung disease 5. DLCO was at the lower limit of normal at 80% predicted. This corrected to 95% predicted when corrected for Hb, consistent with normal indicating normal alveolar gas exchange
== END 2025-06-10 02:24 | disposition home or self-care (01) ==
LOC: RT 02:23
PROVIDERS: PCP Nurse Practitioner Family; Visit Provider Internal Medicine Pulmonary Disease
DX: R05.3 Chronic cough (principal)
CPT/HCPCS: 94060; 94726; 94729

== ENCOUNTER 2025-06-28 12:02 | Outpatient (CLI) | payer MEDICAID, SELFPAY ==
[2025-06-28 12:17] LABS: HCT 37.5 % (40.0-50.0); HGB 11.8 g/dL (13.5-17.5); MCH 27.1 pg (27.0-33.0); MCHC 31.5 % (32.0-36.0); MCV 86 fL (80-95); MPV 8.0 fL (8.0-11.0); Platelet Count 497 10^3/uL (130-400); RBC 4.35 10^6/uL (4.36-5.78); RDW 16.9 % (11.8-14.1); RDW-SD 52.9 fL; WBC 13.26 10^3/uL (4.4-10.8)
[2025-06-28 12:38] LABS: ALT 16 U/L (10-49); AST 19 U/L (<34); Albumin 4.0 g/dL (3.2-5.0); Alkaline Phosphatase 85 U/L (46-116); Anion Gap 7.6 mmol/L (3-11); BUN 12 mg/dL (9-23); Bilirubin, Total 0.2 mg/dL (0.2-1.2); CO2 30.4 mmol/L (20.0-31.0); Calcium 8.8 mg/dL (8.3-10.6); Chloride 104 mmol/L (98-107); Ferritin 34 ng/mL (11-307); Glucose 86 mg/dL (74-106); Potassium 4.1 mmol/L (3.5-5.1); Sodium 142 mmol/L (136-145); Total Protein 7.1 g/dL (5.7-8.2)
[2025-06-28 13:49] LABS: Iron 31 ug/dL (65-175)
== END 2025-06-28 12:03 | disposition home or self-care (01) ==
LOC: LBO 12:02
PROVIDERS: PCP Nurse Practitioner Family; Visit Provider Nurse Practitioner Family
DX: D64.9 Anemia, unspecified (principal)
CPT/HCPCS: 36415; 80053; 85027; 82728; 83540

== ENCOUNTER 2025-07-01 11:27 | Outpatient (CLI) | payer MEDICAID, SELFPAY ==
[2025-07-01 11:48] LABS: Abs Immature Grans 0.04 10^3/uL (0.0-0.06); HCT 36.0 % (40.0-50.0); HGB 11.4 g/dL (13.5-17.5); Immature Grans % 0.4 %; MCH 27.5 pg (27.0-33.0); MCHC 31.7 % (32.0-36.0); MCV 87 fL (80-95); MPV 8.2 fL (8.0-11.0); Platelet Count 538 10^3/uL (130-400); RBC 4.14 10^6/uL (4.36-5.78); RDW 16.8 % (11.8-14.1); RDW-SD 53.1 fL; WBC 11.09 10^3/uL (4.4-10.8)
[2025-07-01 14:38] LABS: ALT 11 U/L (10-49); AST 15 U/L (<34); Albumin 3.9 g/dL (3.2-5.0); Alkaline Phosphatase 78 U/L (46-116); Anion Gap 8.6 mmol/L (3-11); BUN 14 mg/dL (9-23); Bilirubin, Total 0.2 mg/dL (0.2-1.2); C-Reactive Protein 2.71 mg/dL (<=0.50); CO2 27.4 mmol/L (20.0-31.0); Calcium 8.7 mg/dL (8.3-10.6); Chloride 104 mmol/L (98-107); Cholesterol 162 mg/dL (<200); Glucose 96 mg/dL (74-106); HDL Cholesterol 48 mg/dL (>or=40); Potassium 4.0 mmol/L (3.5-5.1); Sodium 140 mmol/L (136-145); Total Protein 7.1 g/dL (5.7-8.2)
== END 2025-07-01 11:28 | disposition home or self-care (01) ==
LOC: LBO 11:27
PROVIDERS: PCP Nurse Practitioner Family; Visit Provider Student in an Organized Health Care Education/Training Program
DX: K51.90 Ulcerative colitis, unspecified, without complications (principal); D50.9 Iron deficiency anemia, unspecified
CPT/HCPCS: 36415; 80053; 80061; 85025; 86140